=== PATIENT | female | born 1985 | race Caucasian/White ===

== ENCOUNTER → 2019-07-10 | Outpatient (CLI) | payer OTHER, BC | LOC: BHSO 11:07 | DX: F42.8 Other obsessive-compulsive disorder (principal) ==

== ENCOUNTER → 2019-08-09 | Outpatient (CLI) | payer OTHER, BC | LOC: BHSO 15:58 | DX: F42.8 Other obsessive-compulsive disorder (principal) | CPT/HCPCS: G0463 ==

== ENCOUNTER → 2019-09-02 | Outpatient (CLI) | payer OTHER, BC | LOC: BHSO 09:52 | DX: F42.8 Other obsessive-compulsive disorder (principal) | CPT/HCPCS: G0463 ==

== ENCOUNTER → 2019-10-07 | Outpatient (CLI) | payer BC | LOC: BHSO 09:45 | DX: F42.8 Other obsessive-compulsive disorder (principal) | CPT/HCPCS: G0463 ==

== ENCOUNTER → 2019-12-17 | Outpatient (CLI) | payer BC | LOC: BHSO 16:24 | DX: F42.8 Other obsessive-compulsive disorder (principal) | CPT/HCPCS: G0463 ==

== ENCOUNTER 2020-03-19 19:17 | Emergency (ER) | payer BC ==
[~2020-03-19] VITALS: Ht 154.9 cm; Wt 45.0 kg
[2020-03-19 19:25] VITALS: PULSE 78; TEMP 99
[2020-03-19] MEDS ORDERED: DESYREL 100MG100 MG PO (19:28)
[2020-03-19] MEDS ORDERED: WELLBUTRIN 75MG75 MG PO (19:28)
[2020-03-19] MEDS ORDERED: SYNTHROID0.05 MG/TA PO (19:29)
[2020-03-19] MEDS ORDERED: PRISTIQ100 MG PO (19:33)
[2020-03-19 20:10] VITALS: BP 104/71
== END 2020-03-19 20:10 | disposition home or self-care (01) ==
LOC: COL.ER 19:17
DX: S61.217A Laceration without foreign body of left little finger without damage to nail, initial encounter (principal); E03.9 Hypothyroidism, unspecified; W26.0XXA Contact with knife, initial encounter; Y92.009 Unspecified place in unspecified non-institutional (private) residence as the place of occurrence of the external cause

== ENCOUNTER → 2020-03-26 | Outpatient (CLI) | payer BC ==
[~2020-03-26] MED LIST: DESYREL 100MG100 MG PO; PRISTIQ100 MG PO; SYNTHROID0.05 MG/TA PO; WELLBUTRIN 75MG75 MG PO
[2020-03-26 16:48] VITALS: BP 120/77; PULSE 78; TEMP 99
== END ==
LOC: COL.ER 16:41
DX: Z48.02 Encounter for removal of sutures (principal)

== ENCOUNTER → 2020-04-14 | Outpatient (CLI) | payer BC | LOC: BHSO 15:05 | DX: F33.42 Major depressive disorder, recurrent, in full remission (principal) | CPT/HCPCS: G0463 ==

== ENCOUNTER → 2020-05-14 | Outpatient (CLI) | payer BC | LOC: BHSO 15:40 | DX: F41.0 Panic disorder [episodic paroxysmal anxiety] (principal) | CPT/HCPCS: G0463 ==

== ENCOUNTER → 2020-07-17 | Outpatient (CLI) | payer BC | LOC: BHSTELE 16:22 → BHSO 16:22 | DX: F42.8 Other obsessive-compulsive disorder (principal) | CPT/HCPCS: G0463 ==